=== PATIENT | female | born 1950 | race Caucasian/White ===

== ENCOUNTER 2018-04-14 18:13 | Inpatient (IN) | payer MEDICARE, OTHER ==
[~2018-04-14] VITALS: Ht 154.9 cm; Wt 49.4 kg
[2018-04-14] MEDS ORDERED: DOCUSATE SODIUM 283 MG/5 ML MINI-ENEMA PR PRN (19:15)
[2018-04-14] MEDS ORDERED: ACETAMINOPHEN 325 MG TABLET PO PRN (19:15)
[2018-04-14] MEDS ORDERED: PROCHLORPERAZINE MALEATE 10 MG TABLET PO PRN (19:30)
[2018-04-14] MEDS ORDERED: LOPERAMIDE HCL 2 MG CAPSULE PO PRN (19:30)
[2018-04-14] MEDS ORDERED: ONDANSETRON HCL 4 MG TABLET PO PRN (19:30)
[2018-04-14 20:00] VITALS: BP 108/68
[2018-04-14] MEDS ORDERED: MIRTAZAPINE 15 MG TABLET PO SCH (21:00)
[2018-04-14] MEDS: SENNA 187 MG TABLET PO SCH (21:00)
[2018-04-14] MEDS: DOCUSATE SODIUM 100 MG CAPSULE PO SCH (21:00)
[2018-04-14] MEDS: CycloSPORINE 0.05% 0.4 ML OPHTHALMIC EMULSION OU SCH (21:00)
[2018-04-14] MEDS ORDERED: GABAPENTIN 300 MG CAPSULE PO SCH (21:00)
[2018-04-14] MEDS: ACYCLOVIR 200 MG CAPSULE PO SCH (21:34)
[2018-04-14] MEDS: HYDROXYCHLOROQUINE SULFATE 200 MG TABLET PO SCH (21:34)
[2018-04-15] VITALS (7 sets, daily range): BP systolic 89–112; BP diastolic 53–76
[2018-04-15] MEDS: LEVOTHYROXINE SODIUM 50 MCG TABLET PO SCH (06:20)
[2018-04-15] MEDS: ATOVAQUONE 750 MG/5 ML PO SCH (07:30)
[2018-04-15] MEDS: VITAMIN B COMPLEX ER TABLET PO SCH (08:16)
[2018-04-15] MEDS: CycloSPORINE 0.05% 0.4 ML OPHTHALMIC EMULSION OU SCH ×2 (08:16→21:12)
[2018-04-15] MEDS: MEGESTROL ACETATE 400 MG/10 ML SUSPENSION UDCUP PO SCH (08:16)
[2018-04-15] MEDS: HYDROXYCHLOROQUINE SULFATE 200 MG TABLET PO SCH ×2 (08:16→21:12)
[2018-04-15] MEDS: ACYCLOVIR 200 MG CAPSULE PO SCH ×2 (08:16→21:12)
[2018-04-15] MEDS: FAMOTIDINE 20 MG TABLET PO SCH (08:26)
[2018-04-15] MEDS: METOPROLOL SUCCINATE 25 MG ER TABLET PO SCH (08:26)
[2018-04-15] MEDS: DOCUSATE SODIUM 100 MG CAPSULE PO SCH ×2 (08:26→21:00)
[2018-04-15] MEDS: ASPIRIN 81 MG CHEWABLE TABLET PO SCH (08:26)
[2018-04-15] MEDS: HEPARIN SODIUM,PORCINE 5,000 UNITS/ML VIAL SQ SCH (21:00)
[2018-04-15] MEDS: SENNA 187 MG TABLET PO SCH (21:00)
[2018-04-16 01:00] VITALS: BP 99/67
[2018-04-16] MEDS: LEVOTHYROXINE SODIUM 50 MCG TABLET PO SCH (06:46)
[2018-04-16] MEDS: ATOVAQUONE 750 MG/5 ML PO SCH (07:30)
[2018-04-16 07:49] VITALS: BP 118/77
[2018-04-16] MEDS: ASPIRIN 81 MG CHEWABLE TABLET PO SCH (08:04)
[2018-04-16] MEDS: MEGESTROL ACETATE 400 MG/10 ML SUSPENSION UDCUP PO SCH (08:04)
[2018-04-16] MEDS: VITAMIN B COMPLEX ER TABLET PO SCH (08:04)
[2018-04-16] MEDS: METOPROLOL SUCCINATE 25 MG ER TABLET PO SCH (08:04)
[2018-04-16] MEDS: ACYCLOVIR 200 MG CAPSULE PO SCH ×2 (08:04→21:18)
[2018-04-16] MEDS: HYDROXYCHLOROQUINE SULFATE 200 MG TABLET PO SCH ×2 (08:04→21:18)
[2018-04-16] MEDS: CycloSPORINE 0.05% 0.4 ML OPHTHALMIC EMULSION OU SCH ×2 (08:05→21:19)
[2018-04-16] MEDS: HEPARIN SODIUM,PORCINE 5,000 UNITS/ML VIAL SQ SCH ×2 (08:07→21:18)
[2018-04-16] MEDS: FAMOTIDINE 20 MG TABLET PO SCH (08:08)
[2018-04-16] MEDS: DOCUSATE SODIUM 100 MG CAPSULE PO SCH ×2 (08:08→21:00)
[2018-04-16 15:20] VITALS: BP 116/74
[2018-04-16] MEDS: SENNA 187 MG TABLET PO SCH (21:00)
[2018-04-16] MEDS ORDERED: DOCUSATE SODIUM 100 MG CAPSULE PO PRN (23:15)
[2018-04-16] MEDS ORDERED: SENNA 187 MG TABLET PO PRN (23:15)
[2018-04-17] VITALS (8 sets, daily range): BP systolic 95–114; BP diastolic 58–81
[2018-04-17] MEDS: LEVOTHYROXINE SODIUM 50 MCG TABLET PO SCH (06:33)
[2018-04-17] MEDS: ATOVAQUONE 750 MG/5 ML PO SCH (07:30)
[2018-04-17] MEDS: VITAMIN B COMPLEX ER TABLET PO SCH (08:02)
[2018-04-17] MEDS: MEGESTROL ACETATE 400 MG/10 ML SUSPENSION UDCUP PO SCH (08:02)
[2018-04-17] MEDS: METOPROLOL SUCCINATE 25 MG ER TABLET PO SCH ×2 (08:02→10:20)
[2018-04-17] MEDS: ACYCLOVIR 200 MG CAPSULE PO SCH ×2 (08:02→20:15)
[2018-04-17] MEDS: HYDROXYCHLOROQUINE SULFATE 200 MG TABLET PO SCH ×2 (08:03→20:15)
[2018-04-17] MEDS: ASPIRIN 81 MG CHEWABLE TABLET PO SCH (08:04)
[2018-04-17] MEDS: FAMOTIDINE 20 MG TABLET PO SCH (08:04)
[2018-04-17] MEDS: HEPARIN SODIUM,PORCINE 5,000 UNITS/ML VIAL SQ SCH ×2 (08:04→20:16)
[2018-04-17] MEDS: CycloSPORINE 0.05% 0.4 ML OPHTHALMIC EMULSION OU SCH ×2 (08:07→20:15)
[2018-04-17] MEDS ORDERED: METOPROLOL SUCCINATE 25 MG ER TABLET PO ONE (20:00)
[2018-04-18 03:16] VITALS: BP 106/69
[2018-04-18] MEDS: LEVOTHYROXINE SODIUM 50 MCG TABLET PO SCH (06:32)
[2018-04-18] MEDS: ATOVAQUONE 750 MG/5 ML PO SCH (07:30)
[2018-04-18 08:00] VITALS: BP 106/61
[2018-04-18] MEDS: FAMOTIDINE 20 MG TABLET PO SCH (09:00)
[2018-04-18] MEDS: ASPIRIN 81 MG CHEWABLE TABLET PO SCH (09:00)
[2018-04-18] MEDS: MEGESTROL ACETATE 400 MG/10 ML SUSPENSION UDCUP PO SCH (09:32)
[2018-04-18] MEDS: ENOXAPARIN SODIUM 40 MG/0.4 ML PF SYRINGE SQ SCH (09:32)
[2018-04-18] MEDS: ACYCLOVIR 200 MG CAPSULE PO SCH ×2 (09:33→20:13)
[2018-04-18] MEDS: CycloSPORINE 0.05% 0.4 ML OPHTHALMIC EMULSION OU SCH ×2 (09:33→20:13)
[2018-04-18] MEDS: HYDROXYCHLOROQUINE SULFATE 200 MG TABLET PO SCH ×2 (09:34→20:13)
[2018-04-18] MEDS: VITAMIN B COMPLEX ER TABLET PO SCH (10:07)
[2018-04-18 15:50] VITALS: BP 90/57
[2018-04-18 20:11] VITALS: BP 92/65
[2018-04-18 20:50] VITALS: BP 106/70
[2018-04-18] MEDS: METOPROLOL SUCCINATE 50 MG ER TABLET PO SCH (21:47)
[2018-04-18 23:15] VITALS: BP 104/61
[2018-04-19] MEDS ORDERED: ACYC200C PO (02:32)
[2018-04-19] MEDS ORDERED: VITA1TAB22 PO (02:32)
[2018-04-19] MEDS ORDERED: ONDA4 PO (02:32)
[2018-04-19] MEDS ORDERED: HYDR200T4 PO (02:32)
[2018-04-19] MEDS ORDERED: MEGE400O4 PO (02:32)
[2018-04-19] MEDS ORDERED: METO25XL PO (02:32)
[2018-04-19] MEDS ORDERED: LOPE2 PO (02:32)
[2018-04-19] MEDS ORDERED: LEVO50 PO (02:32)
[2018-04-19] MEDS: LEVOTHYROXINE SODIUM 50 MCG TABLET PO SCH (06:41)
[2018-04-19] MEDS: ATOVAQUONE 750 MG/5 ML PO SCH (07:30)
[2018-04-19 07:54] VITALS: BP 106/75
[2018-04-19] MEDS: FAMOTIDINE 20 MG TABLET PO SCH (07:57)
[2018-04-19] MEDS: VITAMIN B COMPLEX ER TABLET PO SCH (07:58)
[2018-04-19] MEDS: ASPIRIN 81 MG CHEWABLE TABLET PO SCH (07:58)
[2018-04-19] MEDS: ACYCLOVIR 200 MG CAPSULE PO SCH ×2 (07:59→20:57)
[2018-04-19] MEDS: HYDROXYCHLOROQUINE SULFATE 200 MG TABLET PO SCH ×2 (07:59→20:57)
[2018-04-19] MEDS: MEGESTROL ACETATE 400 MG/10 ML SUSPENSION UDCUP PO SCH (07:59)
[2018-04-19] MEDS: ENOXAPARIN SODIUM 40 MG/0.4 ML PF SYRINGE SQ SCH (08:01)
[2018-04-19] MEDS: CycloSPORINE 0.05% 0.4 ML OPHTHALMIC EMULSION OU SCH ×2 (08:01→20:57)
[2018-04-19] MEDS: BENAZEPRIL HCL 5 MG TABLET PO SCH (09:00)
[2018-04-19 15:45] VITALS: BP 99/67
[2018-04-19 20:53] VITALS: BP 94/68
[2018-04-19] MEDS: METOPROLOL SUCCINATE 50 MG ER TABLET PO SCH (21:00)
[2018-04-19 21:48] VITALS: BP 98/60
[2018-04-20 02:35] VITALS: BP 98/57
[2018-04-20] MEDS: LEVOTHYROXINE SODIUM 50 MCG TABLET PO SCH (06:56)
[2018-04-20 07:21] VITALS: BP 95/62
[2018-04-20] MEDS: ATOVAQUONE 750 MG/5 ML PO SCH (07:30)
[2018-04-20] MEDS: VITAMIN B COMPLEX ER TABLET PO SCH (08:03)
[2018-04-20] MEDS: CycloSPORINE 0.05% 0.4 ML OPHTHALMIC EMULSION OU SCH ×2 (08:03→21:34)
[2018-04-20] MEDS: HYDROXYCHLOROQUINE SULFATE 200 MG TABLET PO SCH ×2 (08:04→21:34)
[2018-04-20] MEDS: ENOXAPARIN SODIUM 40 MG/0.4 ML PF SYRINGE SQ SCH (08:04)
[2018-04-20] MEDS: MEGESTROL ACETATE 400 MG/10 ML SUSPENSION UDCUP PO SCH (08:04)
[2018-04-20] MEDS: ACYCLOVIR 200 MG CAPSULE PO SCH ×2 (08:04→21:34)
[2018-04-20] MEDS: FAMOTIDINE 20 MG TABLET PO SCH (08:05)
[2018-04-20] MEDS: BENAZEPRIL HCL 5 MG TABLET PO SCH (08:05)
[2018-04-20] MEDS: ASPIRIN 81 MG CHEWABLE TABLET PO SCH (08:05)
[2018-04-20 16:17] VITALS: BP 97/72
[2018-04-20 21:27] VITALS: BP 108/67
[2018-04-20] MEDS: METOPROLOL SUCCINATE 50 MG ER TABLET PO SCH (21:34)
[2018-04-21 00:45] VITALS: BP 96/57
[2018-04-21] MEDS: LEVOTHYROXINE SODIUM 50 MCG TABLET PO SCH (06:28)
[2018-04-21 07:20] VITALS: BP 98/63
[2018-04-21] MEDS: ATOVAQUONE 750 MG/5 ML PO SCH (07:30)
[2018-04-21] MEDS: MEGESTROL ACETATE 400 MG/10 ML SUSPENSION UDCUP PO SCH (08:19)
[2018-04-21] MEDS: ACYCLOVIR 200 MG CAPSULE PO SCH ×2 (08:19→21:06)
[2018-04-21] MEDS: VITAMIN B COMPLEX ER TABLET PO SCH (08:20)
[2018-04-21] MEDS: CycloSPORINE 0.05% 0.4 ML OPHTHALMIC EMULSION OU SCH ×2 (08:20→21:06)
[2018-04-21] MEDS: HYDROXYCHLOROQUINE SULFATE 200 MG TABLET PO SCH ×2 (08:21→21:06)
[2018-04-21] MEDS: BENAZEPRIL HCL 5 MG TABLET PO SCH (08:22)
[2018-04-21] MEDS: FAMOTIDINE 20 MG TABLET PO SCH (08:22)
[2018-04-21] MEDS: ASPIRIN 81 MG CHEWABLE TABLET PO SCH (08:22)
[2018-04-21] MEDS: ENOXAPARIN SODIUM 40 MG/0.4 ML PF SYRINGE SQ SCH (08:25)
[2018-04-21 17:56] VITALS: BP 97/59
[2018-04-21 21:00] VITALS: BP 91/51
[2018-04-21] MEDS: METOPROLOL SUCCINATE 50 MG ER TABLET PO SCH (21:00)
[2018-04-22 01:30] VITALS: BP 110/69
[2018-04-22] MEDS: LEVOTHYROXINE SODIUM 50 MCG TABLET PO SCH (06:33)
[2018-04-22 07:20] VITALS: BP 125/74
[2018-04-22] MEDS: ATOVAQUONE 750 MG/5 ML PO SCH (07:30)
[2018-04-22] MEDS: CycloSPORINE 0.05% 0.4 ML OPHTHALMIC EMULSION OU SCH ×2 (08:38→20:33)
[2018-04-22] MEDS: ENOXAPARIN SODIUM 40 MG/0.4 ML PF SYRINGE SQ SCH (08:38)
[2018-04-22] MEDS: VITAMIN B COMPLEX ER TABLET PO SCH (08:38)
[2018-04-22] MEDS: ACYCLOVIR 200 MG CAPSULE PO SCH ×2 (08:38→20:33)
[2018-04-22] MEDS: HYDROXYCHLOROQUINE SULFATE 200 MG TABLET PO SCH ×2 (08:38→20:33)
[2018-04-22] MEDS: MEGESTROL ACETATE 400 MG/10 ML SUSPENSION UDCUP PO SCH (08:39)
[2018-04-22] MEDS: ASPIRIN 81 MG CHEWABLE TABLET PO SCH (08:40)
[2018-04-22] MEDS: FAMOTIDINE 20 MG TABLET PO SCH (08:40)
[2018-04-22] MEDS: BENAZEPRIL HCL 5 MG TABLET PO SCH (09:00)
[2018-04-22 10:30] VITALS: BP 97/65
[2018-04-22 11:25] VITALS: BP 120/59
[2018-04-22] MEDS: METOPROLOL SUCCINATE 50 MG ER TABLET PO SCH (11:25)
[2018-04-22 15:00] VITALS: BP 105/66
[2018-04-23 01:18] VITALS: BP 108/66
[2018-04-23] MEDS: LEVOTHYROXINE SODIUM 50 MCG TABLET PO SCH (06:32)
[2018-04-23] MEDS: ATOVAQUONE 750 MG/5 ML PO SCH (07:30)
[2018-04-23 07:50] VITALS: BP 96/60
[2018-04-23] MEDS: VITAMIN B COMPLEX ER TABLET PO SCH (09:00)
[2018-04-23] MEDS: ASPIRIN 81 MG CHEWABLE TABLET PO SCH (09:00)
[2018-04-23] MEDS: BENAZEPRIL HCL 5 MG TABLET PO SCH (09:00)
[2018-04-23] MEDS: FAMOTIDINE 20 MG TABLET PO SCH (09:00)
[2018-04-23] MEDS: CycloSPORINE 0.05% 0.4 ML OPHTHALMIC EMULSION OU SCH ×2 (09:02→21:02)
[2018-04-23] MEDS: ENOXAPARIN SODIUM 40 MG/0.4 ML PF SYRINGE SQ SCH (09:05)
[2018-04-23] MEDS: MEGESTROL ACETATE 400 MG/10 ML SUSPENSION UDCUP PO SCH (09:05)
[2018-04-23] MEDS: HYDROXYCHLOROQUINE SULFATE 200 MG TABLET PO SCH ×2 (09:06→21:02)
[2018-04-23] MEDS: ACYCLOVIR 200 MG CAPSULE PO SCH ×2 (09:06→21:02)
[2018-04-23 09:55] VITALS: BP 107/66
[2018-04-23] MEDS: METOPROLOL SUCCINATE 50 MG ER TABLET PO SCH (10:07)
[2018-04-23 16:05] VITALS: BP 90/56
[2018-04-23 21:00] VITALS: BP 98/75
[2018-04-24 03:12] VITALS: BP 112/65
[2018-04-24] MEDS: LEVOTHYROXINE SODIUM 50 MCG TABLET PO SCH (06:30)
[2018-04-24 07:30] VITALS: BP 93/72
[2018-04-24] MEDS: ATOVAQUONE 750 MG/5 ML PO SCH (07:30)
[2018-04-24] MEDS: ENOXAPARIN SODIUM 40 MG/0.4 ML PF SYRINGE SQ SCH (08:10)
[2018-04-24] MEDS: MEGESTROL ACETATE 400 MG/10 ML SUSPENSION UDCUP PO SCH (08:10)
[2018-04-24] MEDS: CycloSPORINE 0.05% 0.4 ML OPHTHALMIC EMULSION OU SCH ×2 (08:10→20:42)
[2018-04-24] MEDS: HYDROXYCHLOROQUINE SULFATE 200 MG TABLET PO SCH ×2 (08:10→20:43)
[2018-04-24] MEDS: ACYCLOVIR 200 MG CAPSULE PO SCH ×2 (08:10→20:43)
[2018-04-24] MEDS: ASPIRIN 81 MG CHEWABLE TABLET PO SCH (08:26)
[2018-04-24] MEDS: BENAZEPRIL HCL 5 MG TABLET PO SCH (08:27)
[2018-04-24] MEDS: VITAMIN B COMPLEX ER TABLET PO SCH (08:27)
[2018-04-24] MEDS: FAMOTIDINE 20 MG TABLET PO SCH (08:27)
[2018-04-24 16:52] VITALS: BP 95/54
[2018-04-24 20:40] VITALS: BP 99/64
[2018-04-24] MEDS: METOPROLOL SUCCINATE 50 MG ER TABLET PO SCH (20:43)
[2018-04-24 23:46] VITALS: BP 110/64
[2018-04-25] MEDS: LEVOTHYROXINE SODIUM 50 MCG TABLET PO SCH (06:37)
[2018-04-25] MEDS: ATOVAQUONE 750 MG/5 ML PO SCH ×2 (07:30→08:28)
[2018-04-25] MEDS: ENOXAPARIN SODIUM 40 MG/0.4 ML PF SYRINGE SQ SCH (08:27)
[2018-04-25] MEDS: CycloSPORINE 0.05% 0.4 ML OPHTHALMIC EMULSION OU SCH ×2 (08:27→20:01)
[2018-04-25] MEDS: MEGESTROL ACETATE 400 MG/10 ML SUSPENSION UDCUP PO SCH (08:27)
[2018-04-25] MEDS: VITAMIN B COMPLEX ER TABLET PO SCH ×2 (08:28→08:43)
[2018-04-25] MEDS: HYDROXYCHLOROQUINE SULFATE 200 MG TABLET PO SCH ×2 (08:29→20:01)
[2018-04-25] MEDS: ACYCLOVIR 200 MG CAPSULE PO SCH ×2 (08:29→20:01)
[2018-04-25] MEDS: FAMOTIDINE 20 MG TABLET PO SCH ×2 (08:29→08:43)
[2018-04-25 08:32] VITALS: BP 97/55
[2018-04-25] MEDS: BENAZEPRIL HCL 5 MG TABLET PO SCH (08:32)
[2018-04-25] MEDS: ASPIRIN 81 MG CHEWABLE TABLET PO SCH ×2 (08:34→08:43)
[2018-04-25] MEDS ORDERED: CYCL05OE OU (12:39)
[2018-04-25] MEDS ORDERED: BENA5TAB26 PO (12:44)
[2018-04-25] MEDS ORDERED: MEGE400O4 PO (12:45)
[2018-04-25] MEDS ORDERED: ATOV5L PO (12:46)
[2018-04-25] MEDS ORDERED: ASPI81TA39 PO (12:48)
[2018-04-25] MEDS ORDERED: FAMO20TA8 PO (12:56)
[2018-04-25 17:20] VITALS: BP 102/62
[2018-04-25 20:00] VITALS: BP 101/59
[2018-04-25] MEDS: METOPROLOL SUCCINATE 50 MG ER TABLET PO SCH (20:01)
[2018-04-26 01:04] VITALS: BP 100/60
[2018-04-26] MEDS: LEVOTHYROXINE SODIUM 50 MCG TABLET PO SCH (05:34)
[2018-04-29] MEDS ORDERED: FAMOTIDINE 20 MG TABLET PO PRN (09:00)
== END 2018-04-26 06:21 | disposition home or self-care (01) | DRG 947 ==
LOC: 2WR 18:30
DX: R53.81 Other malaise (principal); I21.4 Non-ST elevation (NSTEMI) myocardial infarction; D68.61 Antiphospholipid syndrome; I13.0 Hypertensive heart and chronic kidney disease with heart failure and stage 1 through stage 4 chronic kidney disease, or unspecified chronic kidney disease; I42.9 Cardiomyopathy, unspecified; I50.40 Unspecified combined systolic (congestive) and diastolic (congestive) heart failure; Z94.84 Stem cells transplant status; C85.10 Unspecified B-cell lymphoma, unspecified site; E03.9 Hypothyroidism, unspecified; I25.10 Atherosclerotic heart disease of native coronary artery without angina pectoris; N18.9 Chronic kidney disease, unspecified; D63.8 Anemia in other chronic diseases classified elsewhere; G62.9 Polyneuropathy, unspecified; M35.00 Sjogren syndrome, unspecified; M32.9 Systemic lupus erythematosus, unspecified; F41.9 Anxiety disorder, unspecified; F32.9 Major depressive disorder, single episode, unspecified; F43.23 Adjustment disorder with mixed anxiety and depressed mood; B27.00 Gammaherpesviral mononucleosis without complication; R00.0 Tachycardia, unspecified; Z87.440 Personal history of urinary (tract) infections; Z87.891 Personal history of nicotine dependence; Z86.19 Personal history of other infectious and parasitic diseases; Z79.899 Other long term (current) drug therapy; Z88.1 Allergy status to other antibiotic agents; Z91.041 Radiographic dye allergy status; Z88.0 Allergy status to penicillin; Z88.8 Allergy status to other drugs, medicaments and biological substances; Z91.018 Allergy to other foods; Z82.61 Family history of arthritis
CPT/HCPCS: 87081; 93005; 97110; 97112; 97116; 97140; 97150; 97161; 97166; 97530; 97535; 99366; J1644; J1650